=== PATIENT | male | born 1955 | race Caucasian/White ===

== ENCOUNTER 2018-11-15 10:09 | Inpatient (IN) | payer OTHER ==
[2018-11-15 10:34] LABS: Hemoglobin 16.5 g/dL (14.0-18.0); Mean Corpuscular Volume 93.9 fL (78.0-98.0); Mean Platelet Volume 7.6 fL (7.4-10.4); Platelet Count 249 thou/uL (130-400); RBC Distribution Width 12.6 % (11.5-14.5); Red Blood Cell (RBC) Count 5.31 mill/uL (4.70-6.10)
[2018-11-15] MEDS ORDERED: Ondansetron PF 4 MG/2 ML Vial ONE (10:48)
[2018-11-15] MEDS ORDERED: Morphine 4 MG/ML VIAL ONE ×3 (10:48→13:51)
[2018-11-15 10:50] LABS: ALT (SGPT) 17 U/L (8-55); AST (SGOT) 14 U/L (5-34); Albumin 4.4 g/dL (3.4-4.8); Alkaline Phosphatase 61 U/L (40-150); Anion Gap 13 mmol/L (10-20); BUN (Urea Nitrogen) 20 mg/dL (8.4-25.7); Bilirubin, Total 1.3 mg/dL (0.2-1.2); Calc. Creatinine Clearance 0 mL/min (70-130); Calcium 9.8 mg/dL (7.8-10.44); Carbon Dioxide 24 mmol/L (23-31); Chloride 102 mmol/L (98-107); Estimated GFR-MDRD 63; Globulin 3.1 g/dL (2.4-3.5); Glucose 101 mg/dL (80-115); Lipase 154 U/L (8-78); Potassium 4.3 mmol/L (3.5-5.1); Protein, Total 7.5 g/dL (5.8-8.1); Sodium 135 mmol/L (136-145)
[2018-11-15 11:05] LABS: Band 1 % (5-11); Lymphocytes 14 % (21-51); MDiff Complete? YES; Monocytes 4 % (0-10); Neutrophil 73 % (42-75); Platelet Morphology Comment Appears Adequate; Reactive Lymphocytes 8 % (0-10)
--- NOTE | 2018-11-15 11:30 | CT ---
CT OF THE ABDOMEN AND PELVIS WITH CONTRAST: COMPARISON: None. HISTORY: Diverticulitis with worsening abdominal pain and diarrhea. TECHNIQUE: Multiple contiguous axial images were obtained in a CT of the abdomen and pelvis with contrast. Destiney nal reformats were performed. FINDINGS: There are numerous diverticula in the colon. Stranding changes are seen adjacent to the diverticula in the sigmoid colon. There is 1 single bubble of free air anterior to the sigmoid colon. No free f luid is seen. The small bowel and appendix are unremarkable. There is a 3.9 cm well-circumscribed right adrenal mass. The patient is status post cholecystectomy. The liver, kidneys, left adrenal gland, spleen, and pancreas are unremarkable. No abdominal or pelvic lymphadenopathy are seen. Atherosclerotic calcifications are seen in the aort a. Degenerative changes are seen in the spine. The visualized abdominal wall soft tissues are unremarka ble. Atelectasis is seen in the lung bases. IMPRESSION: 1. Acute diverticulitis. 2. Right adrenal mass. A CT of the abdomen per adrenal mass protocol is recommended for further sunshine luation on a nonemergent outpatient basis. POS: [facility]
[2018-11-15 11:53] LABS: Bilirubin Negative (Negative); Blood, Urine Negative (Negative); Clarity CLEAR (Clear); Glucose, Urine (Dipstick) Negative (Negative); Leukocyte Negative (Negative); Nitrite Negative (Negative); Protein, Urine (Dipstick) Negative (Neg-Trace); Urobilinogen 0.2 mg/dL (0.2-1.0); pH, Urine 6.5 (5.0-9.0)
[2018-11-15 12:04] LABS: Specific Gravity, Urine 1.039 (1.002-1.036)
[2018-11-15] MEDS ORDERED: Piperacillin/Tazobactam 4.5 GM VIAL ONE (12:18)
[2018-11-15] MEDS ORDERED: Morphine 2 MG/ML SYRINGE SLOW IVP PRN (13:55)
[2018-11-15] MEDS ORDERED: Morphine 4 MG/ML VIAL SLOW IVP PRN (13:56)
[2018-11-15] MEDS ORDERED: Heparin 1,000 UNITS/ML VIAL ONE (15:00)
[2018-11-15 15:05] VITALS: BMI 27.2
[2018-11-15] MEDS ORDERED: Sodium Chloride 0.9% (PF) 10 ML VIAL FS PRN (17:14)
[2018-11-15] MEDS: D5 1/2 NS w/20 mEq KCL 1,000 ML IV SCH (17:29)
[2018-11-15] MEDS: Acetaminophen 1,000 MG in Premix Bag 1 BAG IVPB SCH (17:30)
[2018-11-15] MEDS: Morphine 4 MG/ML VIAL SLOW IVP PRN (17:31)
[2018-11-15] MEDS: Piperacillin/Tazobactam 3.375 GM in Sodium Chloride 0.9% 100 ML IVPB SCH (17:31)
[2018-11-15] MEDS: Ketorolac Tromethamine 30 MG/ML VIAL IVP PRN (18:10)
[2018-11-15] MEDS: Morphine 2 MG/ML SYRINGE SLOW IVP PRN ×2 (20:17→22:32)
[2018-11-15] MEDS: Pantoprazole 40 MG VIAL IVP SCH (20:19)
[2018-11-16] MEDS: Piperacillin/Tazobactam 3.375 GM in Sodium Chloride 0.9% 100 ML IVPB SCH ×5 (00:12→23:35)
[2018-11-16] MEDS: Acetaminophen 1,000 MG in Premix Bag 1 BAG IVPB SCH ×3 (00:12→12:22)
[2018-11-16] MEDS: D5 1/2 NS w/20 mEq KCL 1,000 ML IV SCH ×4 (03:08→19:23)
[2018-11-16] MEDS: Morphine 2 MG/ML SYRINGE SLOW IVP PRN ×4 (04:45→19:42)
[2018-11-16] MEDS: Ketorolac Tromethamine 30 MG/ML VIAL IVP PRN ×2 (08:46→15:39)
[2018-11-16] MEDS: Pantoprazole 40 MG VIAL IVP SCH ×2 (08:50→19:52)
--- NOTE | 2018-11-16 11:32 | HP ---
CHIEF COMPLAINT: Abdominal pain. HISTORY OF PRESENT ILLNESS: Mr. Stevenson is a 63-year-old man with known diverticulosis of the colon. He was diagnosed clinically with diverticulitis a couple of weeks ago and has had 8 days of prescribed 10 days of antibiotics. His abdominal pain and diarrhea resolved and ceased as well for about a week. However, on the day of admission, he had sudden onset of recurrent abdominal pain in the left lower quadrant, which was quite severe. He had to drive for several hours despite the pain due to circumstances beyond his control and by the time he got to the emergency room, he was in severe pain. CT scan confirmed diverticulitis with a tiny focus of extraluminal air, but mostly perisigmoid stranding. No abscess or free perforation was seen. He was admitted and placed on IV antibiotics and pain medication and has had some modest improvement in his symptoms. He denies any nausea or vomiting. He has had diarrhea and occasionally has seen some blood in his stool. This was his first admission for diverticulitis, but he has had intermittent episodes of lower abdominal tenderness for several years. This has, however, become more symptomatic in the past year. He did undergo a colonoscopy last year and a precancerous polyp was removed. PAST MEDICAL HISTORY: Adrenal gland adenoma. This was biopsied in [place] many years ago. He also has a history of diverticulitis. No chronic medical problem. PAST SURGICAL HISTORY: Cholecystectomy. SOCIAL HISTORY: The patient is a former smoker. No history of drug or alcohol use. FAMILY HISTORY: Noncontributory. ALLERGIES: HE HAS NO KNOWN DRUG ALLERGIES. MEDICATIONS: Does not take any medications as an outpatient, although he was on 2 antibiotics for diverticulitis a couple of weeks ago. REVIEW OF SYSTEMS: Ten system review of systems is negative except per HPI. The abdominal pain is constant in onset, although the intensity is somewhat less since receiving pain medications and antibiotics. It does not radiate and is made worse by activity or driving. PHYSICAL EXAMINATION: VITAL SIGNS: The patient is afebrile, heart rate 92, respirations 14, 94% saturated on room air, and blood pressure 107/68. GENERAL: Reveals a healthy-appearing man, in no acute distress. He is not flushed or toxic. He is not jaundiced or icteric. HEENT: Unremarkable. NECK: Supple without lymphadenopathy or thyroid nodules. HEART: Regular in its rate and rhythm without murmurs, rubs, or gallops. LUNGS: Clear to auscultation bilaterally. ABDOMEN: Soft and slightly distended. He is very tender to palpation in the left lower quadrant greater than right lower quadrant and left upper quadrant. He exhibits some voluntary guarding, but no rigidity or rebound. Bowel sounds are hypoactive. Does not have any palpable masses or hernias. EXTREMITIES: Warm and well perfused without edema. NEURO: No focal deficits. PSYCHIATRIC: Alert, oriented, and appropriate. DIAGNOSTIC DATA: White count is elevated at 15, hematocrit is 49, and platelets 249. Sodium is slightly low at 135. Other electrolytes are unremarkable. Bilirubin is mildly elevated at 1.3. Other LFTs are unremarkable. UA was unremarkable. CT images are reviewed and I agree with the written report. ASSESSMENT: Diverticulitis with small focus of extraluminal air consistent with contained perforation. No abscess formation or obstruction noted, but the patient is significantly tender to palpation. We are going to give him a brief trial of medical treatment with bowel rest and IV antibiotics. If this is successful, we should be able to advance his diet. If his symptoms worsen or he begins to look septic, then surgery during this admission may be necessary. This would entail either the laparoscopic washout or possibly a Cayetano's procedure. He does understand that if he requires emergency bowel resection, then a colostomy would most likely be necessary due to the inflamed nature of the bowel and inability to prep in this situation. He does seem to have an increasing frequency of problems with diverticulitis and although this was his first admission. If he continues to have episodes of diverticulitis, then elective sigmoid resection will be recommended. We can discuss that further if he recovers from this episode. The patient and his understand and are in agreement with the plan. All of their questions were answered. Job ID: [id number]
[2018-11-16 12:20] LABS: Band 2 % (5-11); Eosinophils 1 % (0-10); Hemoglobin 13.7 g/dL (14.0-18.0); Hypochromia SLIGHT = 6-15 cells (100X) (0-5/hpf); Large Platelets SLIGHT; Lymphocytes 16 % (21-51); MDiff Complete? YES; Mean Corpuscular HGB CONC 33.5 g/dL (32.0-36.0); Mean Corpuscular Hemoglobin 31.8 pg (27.0-31.0); Mean Platelet Volume 7.9 fL (7.4-10.4); Monocytes 4 % (0-10); Neutrophil 74 % (42-75); Platelet Count 175 thou/uL (130-400); Platelet Morphology Comment Appears Adequate; RBC Distribution Width 12.6 % (11.5-14.5); Reactive Lymphocytes 3 % (0-10); Red Blood Cell (RBC) Count 4.31 mill/uL (4.70-6.10); White Blood Cell (WBC) Count 10.2 thou/uL (4.8-10.8)
[2018-11-16 12:21] LABS: ALT (SGPT) 62 U/L (8-55); AST (SGOT) 41 U/L (5-34); Albumin 3.4 g/dL (3.4-4.8); Alkaline Phosphatase 79 U/L (40-150); Anion Gap 8 mmol/L (10-20); BUN (Urea Nitrogen) 17 mg/dL (8.4-25.7); Calc. Creatinine Clearance 88 mL/min (70-130); Calcium 8.8 mg/dL (7.8-10.44); Carbon Dioxide 27 mmol/L (23-31); Chloride 104 mmol/L (98-107); Estimated GFR-MDRD 65; Globulin 2.6 g/dL (2.4-3.5); Glucose 110 mg/dL (80-115); Potassium 4.3 mmol/L (3.5-5.1); Sodium 135 mmol/L (136-145)
--- NOTE | 2018-11-16 15:39 | PDOC.GSPN ---
Surgery Progress Note: Subj - Subjective Narrative: Patient is feeling a little better today. He is passing gas but hasn't had anymore bowel movements. Pain is a little better. No fevers or chills. White count is down. 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 No longer guarding. Assessment/plan: Diverticulitis appears to be responding to medical management. Continue current care. Surgery Progress Note: Obj - Vital signs Vital signs: Vital Signs - Most Recent Temp Pulse Resp BP Pulse Ox 97.8 F 82 16 104/69 92 L 11/16/18 12:03 11/16/18 12:03 11/16/18 12:03 11/16/18 12:03 11/16/18 12:03 Surgery Progress Note: Results - Labs Result Diagrams: 11/16/18 11:35 11/16/18 11:35 Lab results: Laboratory Results - last 24 hr 11/16/18 11/16/18 11:35 11:35 WBC 10.2 RBC 4.31 L Hgb 13.7 L Hct 40.9 L MCV 95.0 MCH 31.8 H MCHC 33.5 RDW 12.6 Plt Count 175 MPV 7.9 Neutrophils % (Manual) 74 Band Neuts % (Manual) 2 L Lymphocytes % (Manual) 16 L Reactive Lymphs % 3 Monocytes % (Manual) 4 Eosinophils % (Manual) 1 Hypochromia SLIGHT = 6-15 cells Large Platelets SLIGHT Plt Morphology Comment Appears Adequate Sodium 135 L Potassium 4.3 Chloride 104 Carbon Dioxide 27 Anion Gap 8 L BUN 17 Creatinine 1.14 Estimated GFR (MDRD) 65 Glucose 110 Calcium 8.8 Total Bilirubin 2.0 H AST 41 H ALT 62 H Alkaline Phosphatase 79 Serum Total Protein 6.0 Albumin 3.4 Globulin 2.6 Albumin/Globulin Ratio 1.3
[2018-11-16] MEDS: Morphine 4 MG/ML VIAL SLOW IVP PRN (23:31)
[2018-11-17] MEDS: D5 1/2 NS w/20 mEq KCL 1,000 ML IV SCH ×3 (00:55→18:50)
[2018-11-17] MEDS: Ketorolac Tromethamine 30 MG/ML VIAL IVP PRN ×3 (03:57→21:02)
[2018-11-17] MEDS: Morphine 2 MG/ML SYRINGE SLOW IVP PRN (04:00)
[2018-11-17] MEDS: Piperacillin/Tazobactam 3.375 GM in Sodium Chloride 0.9% 100 ML IVPB SCH ×3 (05:22→18:01)
[2018-11-17] MEDS: Morphine 4 MG/ML VIAL SLOW IVP PRN ×5 (08:46→21:02)
[2018-11-17] MEDS: Pantoprazole 40 MG VIAL IVP SCH ×2 (08:48→21:03)
--- NOTE | 2018-11-17 22:05 | PDOC.GSPN ---
Surgery Progress Note: Subj - Subjective Narrative: Patient had a low-grade fever last night and some slight tachycardia but is afebrile today. He thinks the pain is about the same, perhaps slightly improved. No nausea. He is having liquid bowel movements and passing gas. Abdomen is still quite tender in the left lower quadrant greater than right lower quadrant. Assessment/plan: Diverticulitis, still quite symptomatic after 24 hours of IV antibiotics. If he is not significantly improved by tomorrow I will repeat his CT. Surgery Progress Note: Obj - Vital signs Vital signs: Vital Signs - Most Recent Temp Pulse Resp BP Pulse Ox 98.2 F 88 18 129/82 93 L 11/17/18 20:15 11/17/18 20:15 11/17/18 20:15 11/17/18 20:15 11/17/18 20:15 Surgery Progress Note: Results - Labs Result Diagrams: 11/16/18 11:35 11/16/18 11:35
[2018-11-18] MEDS: Morphine 4 MG/ML VIAL SLOW IVP PRN ×10 (00:39→23:31)
[2018-11-18] MEDS: Piperacillin/Tazobactam 3.375 GM in Sodium Chloride 0.9% 100 ML IVPB SCH ×5 (00:40→23:32)
[2018-11-18] MEDS: D5 1/2 NS w/20 mEq KCL 1,000 ML IV SCH ×3 (00:41→19:50)
[2018-11-18] MEDS: Ketorolac Tromethamine 30 MG/ML VIAL IVP PRN ×3 (04:36→18:59)
[2018-11-18 05:11] LABS: Band 8 % (5-11); Hemoglobin 12.7 g/dL (14.0-18.0); Hypochromia SLIGHT = 6-15 cells (100X) (0-5/hpf); Lymphocytes 15 % (21-51); MDiff Complete? YES; Mean Corpuscular HGB CONC 32.7 g/dL (32.0-36.0); Mean Corpuscular Hemoglobin 31.2 pg (27.0-31.0); Mean Corpuscular Volume 95.3 fL (78.0-98.0); Monocytes 4 % (0-10); Neutrophil 73 % (42-75); Platelet Count 179 thou/uL (130-400); Platelet Morphology Comment Appears Adequate; RBC Distribution Width 12.3 % (11.5-14.5); Red Blood Cell (RBC) Count 4.07 mill/uL (4.70-6.10); White Blood Cell (WBC) Count 7.5 thou/uL (4.8-10.8)
[2018-11-18 05:14] LABS: ALT (SGPT) 28 U/L (8-55); AST (SGOT) 15 U/L (5-34); Alkaline Phosphatase 66 U/L (40-150); Anion Gap 9 mmol/L (10-20); BUN (Urea Nitrogen) 12 mg/dL (8.4-25.7); Bilirubin, Total 1.1 mg/dL (0.2-1.2); Calc. Creatinine Clearance 112 mL/min (70-130); Calcium 8.6 mg/dL (7.8-10.44); Carbon Dioxide 24 mmol/L (23-31); Chloride 106 mmol/L (98-107); Estimated GFR-MDRD 87; Globulin 2.6 g/dL (2.4-3.5); Glucose 118 mg/dL (80-115); Potassium 4.3 mmol/L (3.5-5.1); Protein, Total 5.6 g/dL (5.8-8.1); Sodium 135 mmol/L (136-145)
[2018-11-18] MEDS: Pantoprazole 40 MG VIAL IVP SCH ×2 (08:12→19:50)
--- NOTE | 2018-11-18 16:41 | PDOC.GSPN ---
Surgery Progress Note: Subj - Subjective Narrative: Patient feels a lot better this morning. The abdominal pain has improved significantly. He is passing gas and having liquid bowel movements. Afebrile with normal white count and normal vital signs. He is riffler tender to palpation in the lower abdomen but much less than yesterday. Bowel sounds are hyperactive. Assessment/plan: The patient's diverticulitis finally seems to be improving on IV medications. This is been somewhat slow to respond, and he had recurrent diverticulitis a week after completing a course of oral antibiotics, so I think it is prudent to get infectious disease input. He may have a relatively resistant organism and IV antibiotics as an outpatient may be indicated. He has already decided that he would like to have an interval colectomy after this episode has resolved to avoid future episodes. Surgery Progress Note: Obj - Vital signs Vital signs: Vital Signs - Most Recent Temp Pulse Resp BP Pulse Ox 98.7 F 79 20 108/65 95 11/18/18 15:33 11/18/18 15:33 11/18/18 15:33 11/18/18 15:33 11/18/18 15:33 Surgery Progress Note: Results - Labs Result Diagrams: 11/18/18 04:20 11/18/18 04:20 Lab results: Laboratory Results - last 24 hr 11/18/18 11/18/18 04:20 04:20 WBC 7.5 RBC 4.07 L Hgb 12.7 L Hct 38.8 L MCV 95.3 MCH 31.2 H MCHC 32.7 RDW 12.3 Plt Count 179 MPV 8.0 Neutrophils % (Manual) 73 Band Neuts % (Manual) 8 Lymphocytes % (Manual) 15 L Monocytes % (Manual) 4 Hypochromia SLIGHT = 6-15 cells Plt Morphology Comment Appears Adequate Sodium 135 L Potassium 4.3 Chloride 106 Carbon Dioxide 24 Anion Gap 9 L BUN 12 Creatinine 0.89 Estimated GFR (MDRD) 87 Glucose 118 H Calcium 8.6 Total Bilirubin 1.1 AST 15 ALT 28 Alkaline Phosphatase 66 Serum Total Protein 5.6 L Albumin 3.0 L Globulin 2.6 Albumin/Globulin Ratio 1.2
--- NOTE | 2018-11-18 23:23 | CON ---
DATE OF CONSULTATION: REASON FOR CONSULTATION: Perforated diverticulitis. HISTORY OF PRESENT ILLNESS: This is a 63-year-old patient of Dr. Mckay, who has a history of diverticulitis as well as adrenal gland adenoma biopsy-proven a few years ago, who developed another bout of diverticulitis, and was treated initially with oral antimicrobial therapy with improvement and then recrudescence. A repeat CT scan shows a contained microperforation. No other complications are noticeable at this time, not even an abscess has developed. He has been started on IV therapy with a combination of piperacillin and tazobactam with improvement. He denies headaches. No shortness of breath. There is less abdominal pain. No vomiting. Having liquid bowel movements and no dyspnea. Voiding without difficulty in the toilet. PAST MEDICAL HISTORY: Adrenal adenoma and diverticulitis episode. PAST SURGICAL HISTORY: Cholecystectomy. SOCIAL HISTORY: Former smoker. FAMILY HISTORY: Noncontributory. ALLERGIES: NONE. CURRENT MEDICATIONS: Morphine, Protonix, and Zosyn. PHYSICAL EXAMINATION: VITAL SIGNS: Essentially normal. He had a T-max of a 100.1 a few days ago, has normalized now. SKIN: Not remarkable. He has peripheral IV access. No lymphadenopathy. HEENT: Noncontributory. LUNGS: Clear. HEART: S1-S2 regular rate. ABDOMEN: With moderate tenderness in left lower quadrant. Bowel sounds are present. GENITAL: Normal. MUSCULOSKELETAL: No joint inflammatory activity. No edema. Pulses 1+ in dorsalis pedis. The patient moves extremities equally. NEURO: His cognitive function appears to be intact. LABORATORY DATA: White cell count was 15, down to 7.5, hemoglobin down to 12.7 , MCV is 95, platelets 179, bands were 1 and now they are 8. Chemistry with mild decrease in sodium. Bilirubin was 2, but now is 1.1. Transaminases normalized. Urinalysis is normal. IMAGING DATA: Includes abdomen and pelvis CT, diverticula noted. Stranding. There is a bubble of free air anterior to the sigmoid colon. No free fluid seen. Adrenal mass as noted before. ASSESSMENT: Acute diverticulitis, which seems to be a recurrence after initial response to oral treatment. No major complication detected yet, just micro perforation with the Hinchey I stage and looks like he is going to need IV therapy since it failed initial oral course. May have a resistant pathogen particularly an ESBL pathogen. Peripherally inserted central catheter line placement and then treat for even about 2 weeks or so. Follow up imaging studies. Since pt has had numerous previous episodes, he would be eventually eligible for ressection of the involved segment of sigmoid colon. Job ID: [id number] MTDD
[2018-11-19] MEDS: Morphine 4 MG/ML VIAL SLOW IVP PRN ×4 (02:01→14:23)
[2018-11-19] MEDS: Ketorolac Tromethamine 30 MG/ML VIAL IVP PRN ×3 (02:02→14:29)
[2018-11-19] MEDS: Piperacillin/Tazobactam 3.375 GM in Sodium Chloride 0.9% 100 ML IVPB SCH ×3 (05:01→17:11)
[2018-11-19] MEDS: D5 1/2 NS w/20 mEq KCL 1,000 ML IV SCH ×2 (07:59→16:40)
[2018-11-19] MEDS: Pantoprazole 40 MG VIAL IVP SCH (08:00)
--- NOTE | 2018-11-19 12:07 | SPC ---
LEFT UPPER EXTREMITY PICC LINE INSERTION: History: Patient in need of long-term IV antibiotics. Radiation dosimetry is 1.3 minutes of fluoroscopy and DAP of 2.44 uGy*^cm2. FINDINGS: Informed consent was obtained from the patient. The left basilic vein was localized using fluoroscopy and intravenous contrast. The overlying skin was prepped and draped in the usual sterile manner. A 1% lidocaine solution was used to anesthetize the overlying soft tissues. A small dermatotomy was mad e. The left basilic vein was accessed. An 0.018 wire was introduced. A single lumen PICC line was cut to 50 cm and placed over the wire and through the peel-away sheath distal tip at the junction of the SVC and right atrium. IMPRESSION: Successful placement of left upper extremity PICC line. Transcribed Date/Time: 11/19/2018 12:30 PM
--- NOTE | 2018-11-19 16:37 | PDOC.GSPN ---
Surgery Progress Note: Subj - Subjective Narrative: Patient continues to feel better. He is not having much pain in his abdomen except for an occasional twinge in the right lower quadrant. No nausea or vomiting. Tolerating full liquid diet and hungry for solid food. Abdomen is soft and nondistended. He is still somewhat tender in the suprapubic area but less than before. Vitals are normal. Dr. Boyce has recommended IV antibiotics as an outpatient and he has a PICC line in place for this. I will advance his diet to a GI soft and if he tolerates this he may be ready for discharge tomorrow. Surgery Progress Note: Obj - Vital signs Vital signs: Vital Signs - Most Recent Temp Pulse Resp BP Pulse Ox 98.1 F 69 18 137/84 98 11/19/18 12:25 11/19/18 12:25 11/19/18 12:25 11/19/18 12:25 11/19/18 12:25 Surgery Progress Note: Results - Labs Result Diagrams: 11/18/18 04:20 11/18/18 04:20
[2018-11-19] MEDS ORDERED: traMADol HCl 50 MG TAB PO PRN (16:41)
[2018-11-19] MEDS: traMADol HCl 50 MG TAB PO PRN (17:13)
--- NOTE | 2018-11-19 18:03 | PRG ---
DATE OF SERVICE: 11/19/2018 SUBJECTIVE: Mr. Stevenson is feeling better, less pain. No vomiting; had loose stool. OBJECTIVE: VITAL SIGNS: Normal. GENERAL: Awake, alert, and oriented. LUNGS: Clear. CARDIOVASCULAR: S1, S2. Regular rate. ABDOMEN: Mild tenderness, right and left lower quadrants. LABORATORY DATA: White cell count 7.5, hemoglobin 12.7, platelets 179. Chemistry is normal. ASSESSMENT AND DISCUSSION: Diverticulitis, this is probably the fifth episode with microperforation, having failed oral management in the outpatient setting. Now, the patient to be discharged with a PICC line, IV meropenem in the outpatient setting through my clinic. Job ID: [id number]
[2018-11-19] MEDS ORDERED: Enoxaparin Sodium 40 MG/0.4 ML SYRINGE SC SCH (21:00)
[2018-11-19] MEDS ORDERED: Enoxaparin Sodium 40 MG/0.4 ML SYRINGE ONE (21:49)
[2018-11-19] MEDS ORDERED: Pantoprazole 40 MG VIAL ONE (21:49)
[2018-11-19] MEDS ORDERED: traMADol HCl 50 MG TAB ONE (21:50)
[2018-11-19] MEDS ORDERED: Morphine 2 MG/ML SYRINGE ONE (22:43)
[2018-11-19] MEDS ORDERED: D5 1/2 NS w/20 mEq KCL 1,000 ML ONE (22:47)
[2018-11-20] MEDS ORDERED: Piperacillin/Tazobactam 3.375 GM VIAL ONE (04:01)
[2018-11-20] MEDS ORDERED: traMADol HCl 50 MG TAB ONE ×2 (04:02→08:07)
[2018-11-20] MEDS ORDERED: Pantoprazole 40 MG VIAL ONE (08:06)
[2018-11-20] MEDS ORDERED: D5 1/2 NS w/20 mEq KCL 1,000 ML ONE (08:18)
[2018-11-20] MEDS: D5 1/2 NS w/20 mEq KCL 1,000 ML IV SCH ×2 (08:19→09:29)
[2018-11-20] MEDS: Pantoprazole 40 MG VIAL IVP SCH ×2 (08:20→09:27)
[2018-11-20] MEDS: traMADol HCl 50 MG TAB PO PRN ×2 (08:20→12:33)
[2018-11-20] MEDS ORDERED: Saccharomyces boulardii 250 MG CAP PO SCH (09:00)
[2018-11-20] MEDS: Piperacillin/Tazobactam 3.375 GM in Sodium Chloride 0.9% 100 ML IVPB SCH (09:28)
[2018-11-20 11:50] VITALS: BP 136/85; TEMP 98.4
[2018-11-20] MEDS ORDERED: Ertapenem 1 GM in Sodium Chloride 0.9% 100 ML IVPB SCH (12:15)
== END 2018-11-20 15:15 | disposition home or self-care (01) | DRG 392 ==
LOC: ERS 10:09 → SJJU 13:38
PROVIDERS: ADMIT Surgery; ATTEND Surgery
PROC: 02HV33Z Insertion of Infusion Device into Superior Vena Cava, Percutaneous Approach (ICD-10-PCS; principal; 2018-11-19)
PROC: B518YZA Fluoroscopy of Superior Vena Cava using Other Contrast, Guidance (ICD-10-PCS; 2018-11-19)
DX: K57.20 Diverticulitis of large intestine with perforation and abscess without bleeding (principal); Z87.891 Personal history of nicotine dependence; Z90.49 Acquired absence of other specified parts of digestive tract
CPT/HCPCS: 36415; 36569; 74177; 80053; 80061; 81003; 82306; 82607; 83036; 83605; 83690; 84443; 85007; 85025; 85027; 87040; 96361; 96365; 96375; 96376; C1751; C9113; G0103; J0131; J1335; J1644; J1650; J1885; J2270; J2405; J2543; J3490

== ENCOUNTER 2018-11-28 09:54 | Outpatient (CLI) | payer OTHER ==
[2018-11-28] MEDS ORDERED: ISOVUE-370 76%-LOCM 1 ML ONE (11:15)
--- NOTE | 2018-11-28 13:44 | CT ---
CT ABDOMEN AND PELVIS WITH ORAL AND IV CONTRAST: HISTORY: Diverticulitis with microperforation. COMPARISON: 11/15/2018. FINDINGS: Colonic diverticulosis is again seen. There is thickening of the wall of the sigmoid colon with iva cent inflammatory changes. An air fluid collection has developed in the left lower quadrant/anterior pelvis measuring 2 x 1.7 cm in close association with the anterior wall of the sigmoid colon. A sep arate 2.9 x 1.5 cm poorly loculated fluid collection is also seen in the right lower quadrant/anteri or pelvis posterior to the right rectus muscle. The small bowel loops are not abnormally dilated. There are mild atelectatic changes at the lung bases. The liver, spleen, pancreas, left adrenal glan d, and left kidney are normal. Tiny low-density lesion in the right kidney is likely cyst. A 4 cm r ight adrenal mass is stable. There is a fat-containing small left inguinal hernia. Vascular calcifi cations are present without evidence of aneurysmal dilatation of the abdominal aorta. There are dege nerative changes in the spine. A normal-appearing appendix is present. IMPRESSION: 1. Sigmoid diverticulitis with developing small abscesses in the lower abdomen/pelvis. 2. A 4 cm right adrenal mass. Surgical consultation is recommended. POS: [facility]
== END 2018-11-28 09:55 | disposition home or self-care (01) ==
LOC: BICCT 09:54
PROVIDERS: ATTEND Internal Medicine Infectious Disease
DX: K57.20 Diverticulitis of large intestine with perforation and abscess without bleeding (principal); E27.9 Disorder of adrenal gland, unspecified
CPT/HCPCS: 74177

== ENCOUNTER 2018-12-08 12:30 | Inpatient (IN) | payer OTHER ==
[2018-12-08 12:57] VITALS: BMI 27.2
[2018-12-10] MEDS ORDERED: Midazolam HCl 2 mg/2 ml Vial ONE (10:46)
[2018-12-10] MEDS ORDERED: Dexamethasone 4 mg/ml Vial ONE (10:46)
[2018-12-10] MEDS ORDERED: Fentanyl 100 MCG/2 ML VIAL ONE ×2 (10:46→14:58)
[2018-12-10] MEDS ORDERED: Sodium Chloride 0.9% 100 ML ONE (10:56)
[2018-12-10] MEDS ORDERED: cefOXitin 2 GM VIAL ONE ×2 (10:56→15:15)
[2018-12-10] MEDS ORDERED: Bupivacaine/Epinephrine 0.25% 30 ML VIAL ONE (12:11)
[2018-12-10] MEDS ORDERED: Fentanyl 250 MCG/5 ML VIAL ONE (12:13)
[2018-12-10] MEDS ORDERED: HYDROmorphone 2 MG/ML VIAL ONE (14:58)
[2018-12-10] MEDS ORDERED: Rocuronium Bromide 50 MG/5 ML VIAL ONE (14:59)
[2018-12-10] MEDS ORDERED: Bupivacaine HCl 0.5%/Epinephrine 1:200,000/PF 30 ml Vial ONE (15:58)
[2018-12-10] MEDS ORDERED: HYDROmorphone 2 MG/ML VIAL SLOW IVP PRN (16:48)
[2018-12-10] MEDS ORDERED: Promethazine HCl 25 MG/ML VIAL SLOW IVP PRN (16:48)
[2018-12-10] MEDS ORDERED: Meperidine HCl/PF 25 MG/ML VIAL SLOW IVP PRN (16:48)
[2018-12-10] MEDS ORDERED: Promethazine HCl 25 MG/ML VIAL IM PRN ×2 (16:48→17:27)
[2018-12-10] MEDS ORDERED: PROPOFOL 200 MG/20 ML VIAL ONE (16:55)
[2018-12-10] MEDS ORDERED: Rocuronium Bromide 10 MG/ML (10ML VIAL) ONE (16:55)
[2018-12-10] MEDS ORDERED: Ondansetron PF 4 MG/2 ML Vial ONE (16:55)
[2018-12-10] MEDS ORDERED: Dexamethasone 20 MG/5 ML VIAL ONE (16:55)
[2018-12-10] MEDS ORDERED: PHENYLEPHRINE-NS 100 MCG/ML 10 ML SYRINGE ONE (16:55)
[2018-12-10] MEDS ORDERED: Lidocaine 1% PF 5 ML VIAL ONE (16:55)
[2018-12-10] MEDS ORDERED: Ondansetron PF 4 MG/2 ML Vial IVP PRN (17:27)
[2018-12-10] MEDS ORDERED: hydrALAZINE 20 MG/ML VIAL SLOW IVP PRN (17:27)
[2018-12-10] MEDS ORDERED: Morphine 2 MG/ML SYRINGE SLOW IVP PRN (17:27)
[2018-12-10] MEDS: D5 1/2 NS w/20 mEq KCL 1,000 ML IV SCH (19:14)
[2018-12-10] MEDS: Ketorolac Tromethamine 30 MG/ML VIAL IVP SCH ×2 (19:14→23:26)
[2018-12-10] MEDS: Acetaminophen 1,000 MG in Premix Bag 1 BAG IVPB SCH ×2 (19:14→23:26)
[2018-12-10] MEDS: Famotidine/PF 20 mg/2ml Vial SLOW IVP SCH (20:49)
[2018-12-10] MEDS: Famotidine 20 MG TAB PO SCH (20:50)
[2018-12-10] MEDS: MEROPENEM 1 GM/50 ML 1 GM in Premix Bag 1 BAG IVPB SCH (23:26)
[2018-12-11] MEDS: Morphine 4 MG/ML VIAL SLOW IVP PRN ×2 (00:30→08:38)
[2018-12-11] MEDS: D5 1/2 NS w/20 mEq KCL 1,000 ML IV SCH ×3 (02:17→17:42)
[2018-12-11 04:41] LABS: #Basophils 0.1 thou/uL (0.0-0.2); #Monocytes 0.3 thou/uL (0.11-0.59); #Neutrophils 9.9 thou/uL (1.40-6.50); %Basophils 0.9 % (0.0-1.0); %Eosinophils 0.2 % (0.0-10.0); %Lymphocytes 9.1 % (21.0-51.0); %Monocytes 2.4 % (0.0-10.0); %Neutrophils 87.4 % (42.0-75.0); Mean Corpuscular Hemoglobin 29.8 pg (27.0-31.0); Mean Corpuscular Volume 93.1 fL (78.0-98.0); Mean Platelet Volume 7.7 fL (7.4-10.4); Platelet Count 225 thou/uL (130-400); RBC Distribution Width 12.7 % (11.5-14.5); Red Blood Cell (RBC) Count 4.71 mill/uL (4.70-6.10); White Blood Cell (WBC) Count 11.3 thou/uL (4.8-10.8)
[2018-12-11 05:02] LABS: Anion Gap 13 mmol/L (10-20); BUN (Urea Nitrogen) 17 mg/dL (8.4-25.7); Calc. Creatinine Clearance 98 mL/min (70-130); Calcium 9.4 mg/dL (7.8-10.44); Carbon Dioxide 25 mmol/L (23-31); Chloride 102 mmol/L (98-107); Estimated GFR-MDRD 74; Glucose 152 mg/dL (80-115); Potassium 4.8 mmol/L (3.5-5.1); Sodium 135 mmol/L (136-145)
[2018-12-11] MEDS: Acetaminophen 1,000 MG in Premix Bag 1 BAG IVPB SCH ×2 (06:27→11:15)
[2018-12-11] MEDS: Ketorolac Tromethamine 30 MG/ML VIAL IVP SCH ×4 (06:27→23:30)
[2018-12-11] MEDS: MEROPENEM 1 GM/50 ML 1 GM in Premix Bag 1 BAG IVPB SCH ×3 (06:51→20:17)
[2018-12-11] MEDS: Famotidine 20 MG TAB PO SCH ×2 (08:33→20:15)
[2018-12-11] MEDS: Saccharomyces boulardii 250 MG CAP PO SCH (08:33)
[2018-12-11] MEDS: Enoxaparin Sodium 40 MG/0.4 ML SYRINGE SC SCH (08:35)
[2018-12-11] MEDS: Famotidine/PF 20 mg/2ml Vial SLOW IVP SCH ×2 (08:45→20:17)
--- NOTE | 2018-12-11 18:38 | PDOC.OP ---
Operative Note - Operative Note Operative Note: PROCEDURE: Laparoscopic hand-assisted sigmoid colectomy and laparoscopic splenic flexure mobilization SURGEON: Elia Mckay M.D. DATE: 12/10/2018 PREOPERATIVE DIAGNOSIS: Sigmoid diverticulitis POSTOPERATIVE DIAGNOSIS: Sigmoid diverticulitis HISTORY: Patient with multiple episodes of diverticulitis over the years, with 2 recent episodes. His diverticulitis recurred almost immediately after stopping his oral antibiotics and he had to be on long-term IV antibiotics to achieve resolution of his pain. Even on IV antibiotics, he had significant inflammation of the sigmoid colon and 2 small abscesses on follow-up CT. He has decided to proceed with sigmoid colectomy, and has requested urgent operation since he is unable to return to work until this is accomplished. PROCEDURE IN DETAIL: After appropriate bowel preparation and antibiotics were administered the patient was taken to the operating room and placed in supine position and general endotracheal anesthesia was administered. He was prepped and draped in standard sterile fashion and a 6 cm periumbilical incision was made. Dissection was carried down to the fascia which was incised in the midline. The peritoneum was identified grasped and incised. No adhesions were identified in the area of the incision, but there were adhesions to the anterior abdominal wall in the left lower quadrant. These were swept down distally to create a space for the wound protector which was placed in the wound. The GelPort was placed and carbon dioxide gas insufflated through the GelPort to an intra-abdominal pressure of 15 which the patient tolerated well. Additional dissecting trochars were placed in the right lower quadrant and upper midline under direct vision of the laparoscope and the omental adhesions taken down under direct laparoscopic vision using combination of blunt dissection and careful use of the LigaSure device. A small abscess was encountered between the omentum and the peritoneum of the anterior abdominal wall but this was suctioned out without spilling purulence into the abdominal cavity. Adhesions between the omentum and the small bowel were also encountered and these were carefully taken down through the avascular plane using sharp dissection. Some rather dense interloop adhesions were also encountered and taken down in the same way. The sigmoid colon was mobilized off of the anterior abdominal wall and was found to be thickened and inflamed but rather redundant and not fixed were densely adherent to the retroperitoneum. The upper rectum and distal descending colon were both normal to palpation and it was felt to be feasible to proceed with sigmoid colectomy. Additional small bowel adhesions were taken down and the entire area of the small bowel mobilized and externalized through the wound protector and carefully examined. Some additional interloop adhesions were taken down and no areas of injury were identified. The bowel was then returned to the abdominal cavity and attention turned to mobilization of the sigmoid colon. The white line of Toldt was incised and the colon mobilized medially, encountering minimal retroperitoneal adhesions. The gonadal vessels and ureter were identified and the ureter was confirmed to peristalse. This was well away from the area of dissection and from the sigmoid mesentery. A window was created through the mesentery at the level of the upper rectum and a laparoscopic stapler placed through the right lower quadrant trocar and across the upper rectum which was then divided using the stapler. The mesentery was sequentially divided using a LigaSure device close to the wall of the colon. Dissection was carried down to the distal descending colon. The descending colon would not reach to the upper rectum so that the descending colon was entirely mobilized to the level of the splenic flexure, following which additional laxity was achieved. The inferior mesenteric artery had to be divided to allow adequate laxity for the descending colon to reach down to the upper rectum, but care was taken to maintain the mesenteric arcade. The colon was then externalized through the wound protector and towels placed around the colon. The colon was divided at the level of the distal descending colon and the sigmoid colon passed from the field. Bowel sizers were placed into the distal descending colon. The descending colon easily accepted up to a 31 mm sizer so a 31 mm EEA was obtained and the anvil placed into the distal descending colon. A pursestring suture was placed around the end of the distal ascending colon and secured. However, as the mesenteric fat was cleared away from the end of the distal colon, multiple diverticula were encountered which would make stapling through this area somewhat difficult. An area that was more free of diverticula was identified a few centimeters proximal so the distal few centimeters of the descending colon were resected and the anvil placed at this level with another pursestring suture placed. The patient had scattered diverticula throughout his descending colon but the colon was not thickened or abnormal to palpation.. The bowel was dropped back into the abdominal cavity and the GelPort placed. The end of the distal descending colon easily reached down to the rectal stump. Sizers were then placed transanally to the end of the rectal stump and all 3 sizers easily past the end of the rectal stump. The EEA stapler was advanced into the rectal stump and the spike advanced just inferior to the staple line. This was mated to the anvil and secured and the stapler was fired. The EEA stapler was then removed and 2 full-thickness donuts were confirmed. The distal descending colon was digitally clamped and saline infused into the pelvis. Gas was insufflated into the rectum distending the anastomosis and no bubbling was seen. The abdomen was irrigated to clear with warm saline and hemostasis at the operative site was verified. The small bowel is returned to its normal anatomic position and the omentum drawn back down over this. Seprafilm was placed between the omentum and anterior abdominal wall and the fascia was closed with running PDS suture. The skin incisions were copiously irrigated and then closed with 4-0 subcuticular Monocryl suture. Dermabond dressings were placed and the patient was extubated and taken to recovery in good condition. Estimated blood loss was minimal. There were no complications. Specimen is sigmoid colon, with staple line at distal margin.
--- NOTE | 2018-12-11 18:46 | PDOC.GSPN ---
Surgery Progress Note: Subj - Subjective Narrative: Patient is feeling pretty well. He has very minimal pain at rest, a little more when he gets up and moves around. He is passing flatus and is hungry. No nausea. His incisions look good. Vital signs are normal. Labs look okay. I'm going to start him on a clear liquid diet. I have ordered him an abdominal binder to help with his discomfort when he gets up. Surgery Progress Note: Obj - Vital signs Vital signs: Vital Signs - Most Recent Temp Pulse Resp BP Pulse Ox 97.7 F 86 14 126/74 95 12/11/18 15:30 12/11/18 15:30 12/11/18 15:30 12/11/18 15:30 12/11/18 15:30 Surgery Progress Note: Results - Labs Result Diagrams: 12/11/18 04:19 12/11/18 04:19
[2018-12-12] MEDS: Ketorolac Tromethamine 30 MG/ML VIAL IVP SCH ×3 (05:18→18:36)
[2018-12-12] MEDS: D5 1/2 NS w/20 mEq KCL 1,000 ML IV SCH ×2 (05:18→13:48)
[2018-12-12] MEDS: MEROPENEM 1 GM/50 ML 1 GM in Premix Bag 1 BAG IVPB SCH ×3 (05:19→22:19)
[2018-12-12] MEDS: Famotidine 20 MG TAB PO SCH ×2 (09:57→21:30)
[2018-12-12] MEDS: Saccharomyces boulardii 250 MG CAP PO SCH (09:57)
[2018-12-12] MEDS: Famotidine/PF 20 mg/2ml Vial SLOW IVP SCH ×2 (09:58→22:16)
[2018-12-12] MEDS: Enoxaparin Sodium 40 MG/0.4 ML SYRINGE SC SCH (13:48)
[2018-12-12] MEDS ORDERED: Ketorolac Tromethamine 30 MG/ML VIAL IVP PRN (18:18)
[2018-12-12] MEDS ORDERED: Ibuprofen 200 MG TAB PO PRN ×2 (18:19)
[2018-12-12] MEDS ORDERED: Acetaminophen 325 MG TAB PO PRN ×2 (18:19)
[2018-12-12] MEDS ORDERED: traMADol HCl 50 MG TAB PO PRN ×2 (18:19)
[2018-12-12] MEDS: Ibuprofen 600 MG TAB PO PRN (18:46)
--- NOTE | 2018-12-13 | PDOC.GSPN ---
Surgery Progress Note: Subj - Subjective Narrative: Feels pretty good. The abdominal binder helps with the pain he was having an out of bed. No nausea or vomiting. He has had some small liquid bowel movements and his diet was advanced. Incisions look good and abdomen is soft and nondistended and has only minimal tenderness around the circumumbilical incision. Assessment/plan: Doing well status post sigmoid colectomy. I discussed antibiotics management with Dr. Boyce and he wants to continue IV antibiotics until he follows up with him in his clinic next week. If he tolerates advancement of his diet he will likely go home tomorrow. Surgery Progress Note: Obj - Vital signs Vital signs: Vital Signs - Most Recent Temp Pulse Resp BP Pulse Ox 97.9 F 62 16 127/84 94 L 12/12/18 23:35 12/12/18 23:35 12/12/18 23:35 12/12/18 23:35 12/12/18 23:35 Surgery Progress Note: Results - Labs Result Diagrams: 12/11/18 04:19 12/11/18 04:19
[2018-12-13] MEDS: MEROPENEM 1 GM/50 ML 1 GM in Premix Bag 1 BAG IVPB SCH (05:08)
[2018-12-13] MEDS: Ibuprofen 600 MG TAB PO PRN (06:28)
[2018-12-13 08:05] VITALS: BP 127/84; TEMP 97.8
[2018-12-13] MEDS: Famotidine 20 MG TAB PO SCH (08:35)
[2018-12-13] MEDS: Enoxaparin Sodium 40 MG/0.4 ML SYRINGE SC SCH (08:36)
[2018-12-13] MEDS: Saccharomyces boulardii 250 MG CAP PO SCH (08:36)
[2018-12-13] MEDS: Famotidine/PF 20 mg/2ml Vial SLOW IVP SCH (08:46)
== END 2018-12-13 10:19 | disposition home or self-care (01) | DRG 331 ==
LOC: SURG A 12-10 09:55 → SURG B 12-10 18:31
PROVIDERS: ADMIT Surgery; ATTEND Surgery
PROC: 0DBN4ZZ Excision of Sigmoid Colon, Percutaneous Endoscopic Approach (ICD-10-PCS; principal; 2018-12-10)
DX: K57.92 Diverticulitis of intestine, part unspecified, without perforation or abscess without bleeding (principal)
CPT/HCPCS: 36415; 36416; 80048; 83036; 85025; 88307; J0131; J0670; J0694; J1100; J1170; J1650; J1885; J2001; J2185; J2250; J2270; J2405; J2704; J3010; J3490; S0028

== ENCOUNTER 2018-12-08 12:35 | Outpatient (CLI) | payer OTHER ==
[2018-12-08 13:49] LABS: #Eosinphils 0.1 thou/uL (0.0-0.7); #Lymphocytes 2.4 thou/uL (1.20-3.40); #Monocytes 0.4 thou/uL (0.11-0.59); #Neutrophils 4.3 thou/uL (1.40-6.50); %Basophils 0.6 % (0.0-1.0); %Eosinophils 0.9 % (0.0-10.0); %Lymphocytes 33.4 % (21.0-51.0); %Monocytes 5.6 % (0.0-10.0); %Neutrophils 59.5 % (42.0-75.0); Hemoglobin 15.8 g/dL (14.0-18.0); Mean Corpuscular HGB CONC 32.9 g/dL (32.0-36.0); Mean Corpuscular Hemoglobin 30.7 pg (27.0-31.0); Mean Corpuscular Volume 93.3 fL (78.0-98.0); Mean Platelet Volume 7.5 fL (7.4-10.4); Platelet Count 291 thou/uL (130-400); RBC Distribution Width 12.7 % (11.5-14.5); Red Blood Cell (RBC) Count 5.14 mill/uL (4.70-6.10); White Blood Cell (WBC) Count 7.2 thou/uL (4.8-10.8)
[2018-12-08 13:54] LABS: Hemoglobin A1c 5.5 % (4.0-6.0)
[2018-12-08 14:06] LABS: Anion Gap 14 mmol/L (10-20); BUN (Urea Nitrogen) 15 mg/dL (8.4-25.7); Calc. Creatinine Clearance 0 mL/min (70-130); Calcium 9.7 mg/dL (7.8-10.44); Carbon Dioxide 25 mmol/L (23-31); Chloride 105 mmol/L (98-107); Estimated GFR-MDRD 80; Glucose 86 mg/dL (80-115); Potassium 4.6 mmol/L (3.5-5.1); Sodium 139 mmol/L (136-145)
== END 2018-12-08 12:36 | disposition home or self-care (01) ==
LOC: LABBT 12:35
PROVIDERS: ATTEND Surgery
DX: Z01.812 Encounter for preprocedural laboratory examination (principal); K57.92 Diverticulitis of intestine, part unspecified, without perforation or abscess without bleeding
CPT/HCPCS: 80048; 83036; 85025

== ENCOUNTER 2021-05-12 13:04 | Outpatient (CLI) | payer BC | END 2021-05-12 13:05 | disposition home or self-care (01) | LOC: BICCT 13:04 | PROVIDERS: ATTEND Family Medicine | DX: Z12.2 Encounter for screening for malignant neoplasm of respiratory organs (principal); Z87.891 Personal history of nicotine dependence | CPT/HCPCS: 71271 ==